=== PATIENT | female | born 2000 | race Caucasian/White ===

== ENCOUNTER 2021-12-08 18:20 | Emergency (ER) | payer MEDICAID ==
[~2021-12-08] VITALS: Ht 177.8 cm; Wt 58.9 kg
[~2021-12-08 18:20] MED LIST: ACET12.5 PO; AMOX250S6 PO; TETRACAINE LOLLIPOPS
[2021-12-08 18:31] VITALS: BP 117/73
--- NOTE | 2021-12-08 18:39 | ED Lower Extremity ---
General Chief Complaint: Lower Extremity Stated Complaint: R ANKLE INJ Source: patient History of Present Illness Date Seen by Provider: Dec 08, 2021 Time Seen by Provider: 18:31 Initial Comments PT ARRIVES VIA POV FROM HOME STATES 3 DAYS AGO, SHE WAS "JUMPING UP AND DOWN IN FRUSTRATION" AND CAME DOWN HARD ON HER RIGHT HEEL HAS BEEN HAVING PAIN AND SWELLING TO RIGHT HEEL AND ANKLE SINCE THEN NO PARESTHESIAS OR MOTOR DEFICITS NO OTHER INJURIES FROM THE INCIDENT NO PRIOR PROBLEMS/INJURIES TO THIS FOOT/ANKLE/LEG HAS NOT TAKEN ANYTHING FOR PAIN HAS NOT SOUGHT CARE UNTIL TONIGHT SYMPTOMS NO DIFFERENT TONIGHT. LMP--SOMETIME IN NOVEMBER, HAS IUD IN PLACE PCP: NONE Allergies and Home Medications Allergies Coded Allergies: No Known Drug Allergies (Unverified , 08/29/10) Patient Home Medication List Home Medication List Reviewed: Yes Acetaminophen/Codeine (Tylenol/Cod Elix) 12.5 Ml Elix, 5 ML PO Q4HR PRN, (Reported) Entered as Reported by: PRATIK SRIVASTAVA on 09/03/101704 Amoxicillin Trihydrate (Amoxicillin) 250 Mg/5 Ml Susp.recon, 250 MG PO BID, (Reported) Entered as Reported by: PRATIK SRIVASTAVA on 09/03/101702 [Tetracaine Lollipops] , (Reported) Entered as Reported by: PRATIK SRIVASTAVA on 09/03/101702 Review of Systems Constitutional: no symptoms reported Control/STD Prophylaxis: IUD Musculoskeletal: see HPI Skin: no symptoms reported Psychiatric/Neurological: No Symptoms Reported Past Fuktxjh-Brfvfb-Blhqfe Hx Patient Social History Tobacco Use?: No Substance use?: No Alcohol Use?: No Past Medical History Surgeries: Yes Adenoidectomy, Tonsillectomy Respiratory: No Cardiac: No Neurological: No : No Reproductive Disorders: No 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 oz. kg; BMI Method: General Appearance: WD/WN, no apparent distress, other (WEARING THIN, CANVAS SLIP-ON TYPE TENNIS SHOES) Legs: right leg normal inspection Ankles: right ankle other (TENDNERNESS AND SLIGHT SWELLING TO LATERAL AND POSTERIOR ANKLE AREAS, AND TENDERNESS TO LATERAL ASPECTS OF RIGHT HEEL. NO BRUISING OR DEFORMITY. PT IS ABLE TO BEAR WEIGHT. ) Feet: right foot other ( ABOVE) Neurologic/Tendon: normal sensation, normal motor functions, normal tendon functions Neurologic/Psychiatric: no motor/sensory deficits, alert, normal mood/affect, oriented x 3 Skin: normal color, warm/dry; No ecchymosis Progress/Results/Core Measures Results/Orders My Orders Orders - JERI SHAH DO Ankle, Right, 3 Views (12/08/21 18:34) Heel, Right, 2 Views (12/08/21 18:34) Vital Signs/I&O 12/08/21 18:31 Temp 36.6 Pulse 92 Resp 16 B/P (MAP) 117/73 (88) Pulse Ox 99 Diagnostic Imaging Comments XRAYS--PER RADIOLOGIST REPORTS TA 1903 XRAYS RIGHT ANKLE- FINDINGS: No acute fracture or dislocation is seen in the right ankle. Alignment appears normal. The ankle mortise is symmetric and the talar dome is intact. There is no ankle joint effusion. IMPRESSION: No acute osseous abnormality is seen in the right ankle. XRAYS RIGHT CALCANEOUS- FINDINGS: No acute fracture or dislocation is seen in the right calcaneus. Alignment appears normal. Joint spaces are preserved. IMPRESSION: No acute osseous abnormality is seen in the right calcaneus. Reviewed: Reviewed by Me Departure Impression Primary Impression: Contusion of right heel Disposition: HOME, SELF-CARE Condition: Stable Departure-Patient Inst. Decision time for Depature: 19:04 Referrals: NO,LOCAL PHYSICIAN (PCP/Family) Primary Care Physician Patient Instructions: Contusion (DC) Add. Discharge Instructions: WARM EPSOM SALT SOAKS FOR 20 MINUTES, THEN APPLY ICE TO AREA AT 20 MINUTE INTERVALS TYLENOL 1 GRAM AND MOTRIN 800 MG 4 TIMES A DAY NEEDED FOR PAIN FOLLOW UP WITH OF [facility] IN 1 WEEK IF NO BETTER All discharge instructions reviewed with patient and/or family. Voiced understanding. JERI SHAH DO Dec 08, 2021 18:39
--- NOTE | 2021-12-08 18:59 | Diagnostic Imaging Report ---
HISTORY: Right heel injury. TECHNIQUE: 2 views of the right calcaneus. COMPARISON: None. FINDINGS: No acute fracture or dislocation is seen in the right calcaneus. Alignment appears normal. Joint spaces are preserved. IMPRESSION: No acute osseous abnormality is seen in the right calcaneus. Dictated by: Dictated on workstation # [id number]
--- NOTE | 2021-12-08 19:00 | Diagnostic Imaging Report ---
HISTORY: Right ankle injury. TECHNIQUE: 3 views of the right ankle. COMPARISON: None. FINDINGS: No acute fracture or dislocation is seen in the right ankle. Alignment appears normal. The ankle mortise is symmetric and the talar dome is intact. There is no ankle joint effusion. IMPRESSION: No acute osseous abnormality is seen in the right ankle. Dictated by: Dictated on workstation # [id number]
== END 2021-12-08 19:11 | disposition home or self-care (01) ==
LOC: EDUNIT# 18:20 → ER 18:25
DX: S90.31XA Contusion of right foot, initial encounter (principal); W22.09XA Striking against other stationary object, initial encounter; Y93.39 Activity, other involving climbing, rappelling and jumping off
CPT/HCPCS: 73610; 73650